=== PATIENT | female | born 2000 | race Caucasian/White ===

== ENCOUNTER 2020-09-28 11:41 | Emergency (ER) | payer BC ==
[2020-09-28] MEDS ORDERED: Metoclopramide HCl 10 MG TAB ONE (13:49)
== END 2020-09-28 13:53 | disposition home or self-care (01) ==
LOC: CSHERS 11:41
DX: O99.891 Other specified diseases and conditions complicating pregnancy (principal); R11.0 Nausea; Z3A.01 Less than 8 weeks gestation of pregnancy
CPT/HCPCS: 99283